=== PATIENT | female | born 1980 | race Caucasian/White ===

== ENCOUNTER 2017-08-06 08:42 | Emergency (ER) | payer MEDICAID ==
[2017-08-06] MEDS: DIPHENHYDRAMINE 50 MG CAP PO (10:43)
[2017-08-06] MEDS: METHYLPREDNISOLONE 125 MG INJ IM (10:45)
== END 2017-08-06 11:04 | disposition home or self-care (01) ==
LOC: FTE 08:42
DX: T78.40XA Allergy, unspecified, initial encounter (principal); B00.1 Herpesviral vesicular dermatitis
CPT/HCPCS: 96372; 99284-25